=== PATIENT | female | born 1985 | race Caucasian/White ===

== ENCOUNTER 2017-06-20 07:51 | Emergency (ER) | payer BC ==
[~2017-06-20] VITALS: Ht 154.9 cm; Wt 50.8 kg
[2017-06-20 07:54] VITALS: BP 103/65
--- NOTE | 2017-06-20 08:36 | ED GI/GU/ABDOMINAL COMPLAINT ---
History of Present Illness General Chief Complaint: Abdominal Pain/Flank Pain Stated Complaint: L SIDE ABD PAIN Source: patient Exam Limitations: no limitations Vital Signs & Intake/Output Vital Signs & Intake/Output Vital Signs Date Time Temp Pulse Resp B/P B/P Pulse O2 O2 Flow FiO2 Mean Ox Delivery Rate 06/20 0754 98.4 76 18 103/65 98 Room Air Allergies Coded Allergies: NO KNOWN ALLERGIES (01/10/12) Triage Note: 31 YO FEMALE TO TRIAGE C/O CONSTIPATION XWEEKS. STATES SHE WAS ABLE TO GO A LITTLE BIT THE OTHER DAY BUT FEELS LIKE SHE ITS EMPYTING. STATES SHE DRANK SOME TEA LAST PM AND WOKE UP WITH SWEATS AND ABD CRAMPING. PT CURRENTLY HAS MENSES. +VOMTIING. Triage Nurses Notes Reviewed? yes ? N Is pt currently ? No Onset: Gradual Duration: week(s): Timing: recent history Quality/Severity: cramping Severity Numbers: 8 Location: left lower quadrant, right lower quadrant Radiation: no radiation Activities at Onset: none Prior Abdominal Problems: similar symptoms Past Sexual History: Unobtainable at this time Sexually Active: Yes Last Time You Were Sexual: less than 2 months ago Sexual Orientation: Heterosexual No Modifying Factors: none HPI: Patient is a 31-year-old female presenting to the emergency department complaint of firm and small amount of stool for the past several days. Patient reports that she has history of constipation in the past and she tried using over-the- counter suppositories with little relief. She does report one episode of nausea and vomiting last night with chills. She has been around sick people with a GI bug. Denies any current nausea or vomiting. She was able to tolerate this morning without nausea or vomiting. Abdominal pain is crampy in nature and nonradiating. (Deborah Posey) Past History Travel History Traveled to [place] past 21 day No Medical History Any Pertinent Medical History? see below for history Neurological: NONE EENT: NONE Cardiovascular: NONE Respiratory: NONE Gastrointestinal: NONE Hepatic: NONE Renal: NONE Musculoskeletal: NONE Psychiatric: NONE Endocrine: NONE Blood Disorders: NONE Cancer(s): NONE RADAR TECHNICIAN/Reproductive: NONE Surgical History Surgical History: non-contributory Psychosocial History What is your primary language Romanian Tobacco Use: Never used Family History Hx Contributory? No (Deborah Posey) Review of Systems Review of Systems Constitutional: Reports: diaphoresis. Comments Review of systems: See HPI, All other systems negative. Constitutional, no weight loss HEENT: No visual changes no sore throat no congestion Cardiovascular: No chest pain ,palpitation , orthopnea or ankle swelling Skin, no jaundice no rashes Respiratory: No dyspnea cough sputum or hemoptysis GI: NO DIARRHEA : No dysuria No hematuria Muscle skeletal: no back pain, no neck pain, Neurologic: No numbness no confusion Psych: No stress anxiety or depression,. Heme/endocrine: No bruising no bleeding no polyuria or polydipsia Immunology: No splenectomy or history of AIDS (Deborah Posey) Physical Exam Physical Exam General Appearance: well developed/nourished, no apparent distress, alert, awake , comfortable Gastrointestinal: tenderness Comments: Well-developed well-nourished person in no acute distress HEENT: atrauamtic, normocephalic Neck: Normal inspection Back: Nontender, no CVA tenderness. Cardiovascular: Regular rate and rhythm Respiratory: Chest nontender. No respiratory distress.breath sounds clear to auscultation bilaterally Abdomen: Soft, mild tenderness to palpation in the lower quadrants bilaterally without rebound or guarding. Negative psoas and obturator sign. Nontender to palpation over McBurney's point. Nondistended, no appreciable organomegaly. Hypoactive bowel sounds. No ascites Extremity: No edema Neuro: Alert oriented x3 Skin: No appreciable rash on exposed skin, skin is warm and dry. Psych: Mood and affect is normal, memory and judgment is normal. Core Measures ACS in differential dx? No Sepsis Present: No Sepsis Focused Exam Completed? No (Deborah Posey) Progress Differential Diagnosis: UTI/pyelo, , dehydration, electrolyte abnormality, constipation, small bowel obstruction Plan of Care: Orders Procedure Date/time Status Enema 06/20 0947 Active Add-on Test (ER Only) 06/20 0922 Active CULTURE,URINE 06/20 0855 Active URINE 06/20 0842 Complete URINALYSIS 06/20 0842 Complete COMPREHENSIVE METABOLIC PANEL 06/20 0842 Complete CBC WITHOUT DIFFERENTIAL 06/20 08 Complete Laboratory Tests 06/20/17 0854: Urinalysis HEAVY H, Urine Color YEL, Urine Clarity CLEAR, Urine pH 6.0, Ur Specific Lampe 1.025, Urine Protein NEG, Urine Ketones 15 H, Urine Nitrite NEG, Urine Bilirubin NEG, Urine Urobilinogen 0.2, Ur Leukocyte Esterase NEG, Ur Microscopic SEDIMENT EXAMINED, Urine RBC 5-10 H, Ur Epithelial Cells FEW, Urine Bacteria MANY H, Urine Hemoglobin SMALL H, Urine Glucose NEG, Urine Test NEGATIVE 06/20/17 0851: Anion Gap 16, Estimated GFR > 60, BUN/Creatinine Ratio 28.0 H, Glucose 104 H, Calcium 9.4, Total Bilirubin 0.6, AST 18, ALT 29, Alkaline Phosphatase 55, Total Protein 8.0, Albumin 5.0, Globulin 3.0, Albumin/Globulin Ratio 1.7, CBC w Diff MAN DIFF ORDERED, RBC 4.10 L, MCV 90.4, MCH 30.7, RDW 12.5, MPV 8.1, Gran % 90.3 H, Lymphocytes % 6.4 L, Monocytes % 2.4, Eosinophils % 0.1, Basophils % 0.8, Absolute Granulocytes 11.3 H, Absolute Lymphocytes 0.8 L, Absolute Monocytes 0.3, Absolute Eosinophils 0, Absolute Basophils 0.1, Platelet Estimate ADEQUATE, Normocytic RBCs VERIFIED, Normochromic RBCs VERIFIED, PUBS MCHC 33.9 Microbiology 06/20 854 URINE ROUT: Urine Culture - RECD Diagnostic Imaging: Viewed by Me: Radiology Read. Discussed w/RAD: Radiology Read. Radiology Impression: PATIENT: KEILA VILLAVICENCIO PRESENT AGE: 31 PATIENT ACCOUNT NO: [id number] : 85 LOCATION: [facility] ORDERING PHYSICIAN: Deborah RUBIO SERVICE DATE: 06/20/17 EXAM TYPE: RAD - [id number] VIEW EXAMINATION: XR ABDOMEN CLINICAL INDICATION: Rule out constipation versus small bowel perforation. Presenting with abdominal pain small firm bowel movements and emesis. COMPARISON: There are no prior studies for comparison. TECHNIQUE: Frontal views of the abdomen. FINDINGS: There is a copious amount of fecal material present throughout the entire colon, with well formed fecal material present near the hepatic flexure and to a lesser extent in the rectosigmoid region. The caliber of the colon is within normal limits. There are no findings to suggest free intraperitoneal gas. No dilated gas-filled small bowel loops are noted. No air-fluid levels are present. No unusual soft tissue calcifications are noted. The bones are unremarkable IMPRESSION: Nonobstructive bowel gas pattern. Prominent fecal burden. DICTATED BY: Diana Hart MD DATE/TIME DICTATED:06/20/17932 HOME VISIT FIELD CARE MANAGER: MASON DATE/TIME TRANSCRIBED:06/20/17932 CONFIDENTIAL, DO NOT COPY WITHOUT APPROPRIATE AUTHORIZATION. Initial ED EKG: none (Deborah Posey) Departure Departure Time of Disposition: 950 Disposition: HOME OR SELF CARE Condition: Stable Clinical Impression Primary Impression: Constipation Qualifiers: Constipation type: unspecified constipation type Qualified Code: K59.00 - Constipation, unspecified Referrals: Carolynn Gardner APRN (PCP/Family) Additional Instructions: Follow-up with your primary care physician in the next 5-7 days, call to make an appointment. gasket supervisor MiraLAX [id number] and take as directed for the next several days until you are moving her bowels on a regular basis. Increase her fluid intake. This will help with constipation as well. Return for worsening symptoms or concerns. Use enema as directed. Departure Forms: Customer Survey General Discharge Information (Deborah Posey) PA/RIVER RAT Co-Sign Statement Statement: ED Attending supervision documentation- [] I saw and evaluated the patient. I have also reviewed all the pertinent lab results and diagnostic results. I agree with the findings and the plan of care as documented in the PA's/RIVER RAT's documentation. [X] I have reviewed the ED Record and agree with the PA's/RIVER RAT's documentation. [] Additions or exceptions (if any) to the PAs/RIVER RAT's note and plan are summarized below: [] (Juan Antonio CAIN,Wen) ED Attending Observation Initial Observation Note: I have seen and personally examined KEILA VILLAVICENCIO on 06/20/17 at 0901. I agree with the current emergency department documentation. The disposition (admission or discharge) is uncertain at this time, she needs a period of observation for the following reason(s): The ED Nurse caring for this patient has been personally informed as to what the patient is being observed for. (Deborah Posey)
[2017-06-20 08:59] LABS: ABSOLUTE BASOPHIL COUNT 0.1 /CUMM (0.0-0.2); ABSOLUTE EOSINOPHIL COUNT 0 /CUMM (0.0-0.7); ABSOLUTE GRANULOCYTE CT 11.3 /CUMM (1.4-6.5); ABSOLUTE LYMPH COUNT 0.8 /CUMM (1.2-3.4); ABSOLUTE MONOCYTE COUNT 0.3 /CUMM (0.10-0.60); BASOPHIL % 0.8 % (0.0-2.0); EOSINOPHIL % 0.1 % (0-5); GRANULOCYTE % 90.3 % (42.2-75.2); HEMATOCRIT 37.1 % (37-47); MEAN CORPUSCULAR HGB 30.7 PG (27.0-31.0); MEAN CORPUSCULAR HGB CONC 33.9 G/DL (33.0-37.0); MEAN CORPUSCULAR VOLUME 90.4 FL (81.0-99.0); MEAN PLATELET VOLUME 8.1 FL (7.4-10.4); PLATELET COUNT 278 /CUMM (130-400); RBC DISTRIBUTION WIDTH 12.5 % (11.5-14.5); WHITE BLOOD CELL COUNT 12.5 /CUMM (4.8-10.8)
--- NOTE | 2017-06-20 09:39 | RADIOLOGY REPORT ---
EXAMINATION: XR ABDOMEN CLINICAL INDICATION: Rule out constipation versus small bowel perforation. Presenting with abdominal pain small firm bowel movements and emesis. COMPARISON: There are no prior studies for comparison. TECHNIQUE: Frontal views of the abdomen. FINDINGS: There is a copious amount of fecal material present throughout the entire colon, with well formed fecal material present near the hepatic flexure and to a lesser extent in the rectosigmoid region. The caliber of the colon is within normal limits. There are no findings to suggest free intraperitoneal gas. No dilated gas-filled small bowel loops are noted. No air-fluid levels are present. No unusual soft tissue calcifications are noted. The bones are unremarkable IMPRESSION: Nonobstructive bowel gas pattern. Prominent fecal burden.
== END 2017-06-20 09:56 ==
LOC: ERH 07:51
PROVIDERS: Physician Assistant
DX: K59.00 Constipation, unspecified (principal)
CPT/HCPCS: 74018; 81001; 81025; 87086